=== PATIENT | female | born 1975 | race African-American/Black ===

== ENCOUNTER 2017-11-01 17:36 | Emergency (ER) | payer MEDICAID ==
[~2017-11-01] VITALS: Ht 167.6 cm; Wt 114.0 kg
[~2017-11-01 17:36] MED LIST: ALBU90AE IH; BECL8.7A5 IH
[2017-11-01] MEDS ORDERED: ACETAMINOPHEN 500MG TABLET PO ONE (21:45)
[2017-11-01] MEDS ORDERED: IBUPROFEN 400MG TABLET PO ONE (21:45)
[2017-11-01 22:35] VITALS: BP 125/75
== END 2017-11-01 22:55 | disposition home or self-care (01) ==
LOC: ER 18:28
DX: S89.92XA Unspecified injury of left lower leg, initial encounter (principal); J45.909 Unspecified asthma, uncomplicated; W18.39XA Other fall on same level, initial encounter; Y93.89 Activity, other specified; Y92.89 Other specified places as the place of occurrence of the external cause; Y99.8 Other external cause status; Z91.013 Allergy to seafood; Z88.0 Allergy status to penicillin; Z90.710 Acquired absence of both cervix and uterus
CPT/HCPCS: 73562; 99284